=== PATIENT | male | born 1935 | race Caucasian/White ===

== ENCOUNTER 2019-07-04 10:51 | Emergency (ER) | payer MEDICARE, OTHER ==
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
== END 2019-07-04 14:31 | disposition home or self-care (01) ==
LOC: JP.ED 10:51
DX: F60.0 Paranoid personality disorder (principal); Z88.0 Allergy status to penicillin
CPT/HCPCS: 36415; 80053; 80305; 81001; 85025; 99284; G0480; 99283